=== PATIENT | female | born 2000 ===

== ENCOUNTER 2024-09-16 11:38 | Outpatient (AMB) | payer OTHER, SELFPAY ==
--- NOTE | 2024-09-16 11:40 | MHC.OFFWIV ---
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 - In April or May, she was evaluated and noted to have significant sinus obstruction, treated with antibiotics without success. - The patient is struggling with nasal congestion, sneezing with occasional epistaxis, and nasal irritation unrelieved by prior treatments. - She reports an adverse reaction to nasal sprays due to her GERD, requiring limited use to prevent exacerbating reflux symptoms. - Persistent sinus pressure and headaches have led to nausea, while saline sprays provide little relief. - June's treatment with a macrolide antibiotic was unsuccessful in providing resolution. Physical Exam General: Cooperative, healthy appearing, comfortable and no acute distress Orientation/consciousness: Patient oriented x3 Limitations: No limitations Head: Normal to inspection Ears: Hearing grossly normal bilaterally, external ears normal and TM's normal bilaterally Nose: Normal external nose present, Normal nares present and No nasal discharge present Face and sinus: Normal facial exam and yes, maxillary sinuses tender Mouth: Normal oral and palatal mucosa present and moist mucous membranes Throat: Yes tonsils normal, Yes uvula midline. Posterior oropharynx erythema with cobblestoning Eyes: Appearance normal, both eyes and all related structures Neck: Normal visual inspection Respiratory: Normal respiratory effort, able to speak in complete sentences, no respiratory distress, not tachypneic, no tripod positioning and no use of accessory muscles Skin: No rashes or lesions noted Neuro: Patient oriented x3 Extremities: Normal to inspection and Yes no clubbing, cyanosis or edema PFSH Social History Patient Tobacco Use Status: Never used Tobacco Review of Systems Const All systems reviewed & are unremarkable except as noted in HPI and below Physical Exam Vital Signs: Last Vital Signs Temp 98.6 F 09/16/24 11:47 Pulse 60 09/16/24 11:47 BP 102/60 09/16/24 11:47 Pulse Ox 99 09/16/24 11:47 BMI result Body Mass Index 21.9 Assessment & Plan Assessment & Plan (1) Acute bacterial sinusitis: Code(s): J01.90 - Acute sinusitis, unspecified; B96.89 - Other specified bacterial agents as the cause of diseases classified elsewhere Plan: VSS, pt well appearing and PE remarkable for sinus tenderness. The decision was made to initiate treatment with doxycycline to counter a suspected bacterial component of the chronic sinusitis, given the patient's history of recurrent infections, while considering her hypersensitivity to amoxicillin. Usage instructions include limiting direct sun exposure due to potential photosensitivity. Saline nasal sprays and Flonase will continue for symptom management despite previously observed limitations. Oral steroid therapy was considered but deferred due to interactions with existing immunotherapy. The therapeutic aim is to alleviate sinus obstruction and inflammation while monitoring patient response to the antibiotic regimen. Patient was informed and verbally consented to the use of an ambient scribe for clinic note documentation during this visit Medications: New doxycycline hyclate 100 mg PO BID 14 tabs 0RF Coding Level of Care Code New Pt Level 3 (37103) Diagnoses Acute bacterial sinusitis J01.90; B96.89
[2024-09-16 11:47] VITALS: BP 102/60; PULSE 60; TEMP 37; O2SAT 99; BMI 21.9
--- OUTSIDE RECORDS SUMMARY | 2024-09-16 14:25 | XMS_ITS | Clinical Summary ---
Author Organization [employer] Address [address] [place] [address] [address] [place] [address] Care Team Providers Care Sales & Service Associate Name Role Phone Unavailable Primary Care Provider Unavailabl e Social History Tobacco Use Types Packs/Day Years Used Date Smoking Tobacco: Never Assessed Comments Unknown Sex and Gender Information Value Date Recorded Sex Assigned at Female 03/06/2023 3:32 PM EDT Legal Sex Female 3:31 PM EDT Gender Identity Female 03/06/2023 3:32 PM EDT Sexual Orientation Straight 03/06/2023 3: 32 PM EDT Plan of Treatment Health Maintenance Due Date Last Done Comments Depression Screening 1999 HIV Screening 1999 SDOH Screening 1999 Alcohol/Substance Use Screening 2011 Tobacco Screening 2011 Family Planning (PISQ) 2014 HPV Vaccines (1 - 3-dose series) 2014 Hepatitis C Screening 2017 Hepatitis A Vaccines (2 of 2 - 2-dose series) 09/20/2017 03/23/2017 Pneumococcal Vaccine: Pediatrics (0 to 5 Years) and At-Risk Patients (6 to 49) Years) (1 of 2 - PCV) 2018 Pap Smear 2020 COVID-19 Vaccine (5 - 2023- season) 2024 08/05/2022, 06/14/2021, 12/07/2020, Additional history exists Influenza Vaccine (#1) 2024 , 05/06/2021, 05/06/2021, Additional history exists DTaP/Tdap/Td Vaccines (5 - Td or Tdap) 09/17/2031 09/16/2021, 09/16/2021, 08/11/2009, Additional history exists Zoster Vaccines (1 of 2) 2049 RSV Patients and Patients Aged 60 years or older (1 - 1-dose 75+ series) 2074 Hepatitis B Vaccines Completed 03/23/2017, 03/23/2017, 01/24/2017, Additional history exists Meningococcal Vaccine Completed 02/08/2018 , 02/08/2018, 08/16/2010, Additional history exists HIB Vaccines Aged Out No longer eligi ble based on patient's age to complete this topic IPV Vaccines Aged Out No longer eligi ble based on patient's age to complete this topic RSV under 20 months Aged Out No longe r eligible based on patient's age to complete this topic Rotavirus Vaccines Aged Out No longer eligible based on patient's age to complete this [place] [address] [place] [address]
== END 2024-09-16 12:42 | disposition home or self-care (01) ==
PROVIDERS: Visit Provider Physician Assistant
DX: J01.90 Acute sinusitis, unspecified (principal); B96.89 Other specified bacterial agents as the cause of diseases classified elsewhere

== ENCOUNTER → 2024-09-16 11:38 | Outpatient (BNVA) | payer OTHER, SELFPAY | PROVIDERS: Visit Provider Physician Assistant | DX: J01.90 Acute sinusitis, unspecified (principal); B96.89 Other specified bacterial agents as the cause of diseases classified elsewhere | CPT/HCPCS: 99202 ==

== ENCOUNTER 2024-09-23 11:14 | Outpatient (AMB) | payer OTHER, SELFPAY ==
--- NOTE | 2024-09-23 11:18 | MHC.OFFWIV ---
Intake Vital Signs 09/23/24 11:21 Weight 115 lb BP 108/70 Blood Pressure Location Lt brachial Position Sitting Pulse 102 H Pulse Source Pulse Oximeter Pulse Oximetry (%) 98 Oxygen Delivery Method Room Air Intake Visit Reasons: EP ABX not working? Sinus congestion Intake Note: Patient here for sinus infection and was put on antibiotics last week which did not help. Patient Tobacco Use Status: Never used Tobacco Allergies amoxicillin Allergy (Mild, Verified 09/16/24 11:47) Hives HPI HPI Comments History of Present Illness Details History The patient is a 24 year old female presenting with persistent nasal congestion and sinusitis symptoms. Sinusitis was diagnosed on September 16, and a 7-day doxycycline course was prescribed, which proved ineffective, suggesting a viral origin. The patient experiences persistent sneezing, blood-tinged nasal discharge, significant nasal congestion, and thick yellow mucus. She reports difficulty breathing and has tried saline sprays and Flonase without relief. The patient is also on desloratadine, with no use of Mucinex. Her current medications include Kesimpta for multiple sclerosis, with the last injection on August 29 and the next on September 29. Concerns were raised about the interaction with steroids due to ongoing immunotherapy. Physical Exam General: Cooperative, healthy appearing, comfortable and no acute distress Orientation/consciousness: Patient oriented x3 Limitations: No limitations Head: Normal to inspection Ears: Hearing grossly normal bilaterally Nose: Normal external nose present, Normal nares present Face and sinus: Normal facial exam Eyes: Appearance normal, both eyes and all related structures Neck: Normal visual inspection Respiratory: Normal respiratory effort, able to speak in complete sentences, no respiratory distress, not tachypneic, no tripod positioning and no use of accessory muscles Skin: No rashes or lesions noted Neuro: Patient oriented x3 Extremities: Normal to inspection and Yes no clubbing, cyanosis or edema PFSH Social History Patient Tobacco Use Status: Never used Tobacco Review of Systems Const All systems reviewed & are unremarkable except as noted in HPI and below Physical Exam Vital Signs: Last Vital Signs Pulse 102 H 09/23/24 11:21 BP 108/70 09/23/24 11:21 Pulse Ox 98 09/23/24 11:21 Oxygen Delivery Method Room Air 09/23/24 11:21 Assessment & Plan Assessment & Plan (1) Acute bacterial sinusitis: Code(s): J01.90 - Acute sinusitis, unspecified; B96.89 - Other specified bacterial agents as the cause of diseases classified elsewhere Plan: A short course of oral prednisone, 20 mg daily for five days, was initiated to manage nasal congestion and sinusitis symptoms, planning around the patient's Kesmipta schedule,next injection 09/29, to reduce interaction risks. Continuing saline nasal sprays was reinforced, suggesting a switch to hypertonic saline for increased efficacy. The use of Benadryl at night was recommended to help with symptom management, providing a multi-faceted approach to the patient's nasal issues alongside existing treatments. Continue Flonase and allergy pill daily. Patient was informed and verbally consented to the use of an ambient scribe for clinic note documentation during this visit Medications: New prednisone 20 mg PO QAM 5 tabs 0RF Coding Level of Care Code New Pt Level 3 (98614) Diagnoses Acute bacterial sinusitis J01.90; B96.89
[2024-09-23 11:21] VITALS: BP 108/70; PULSE 102; O2SAT 98
--- OUTSIDE RECORDS SUMMARY | 2024-09-23 13:33 | XMS_ITS | Clinical Summary ---
Author Organization [employer] Address [address] [place] [address] [address] [place] [address] Care Team Providers Care Personal Lines Account Executive Name Role Phone Unavailable Primary Care Provider [...] patient's age to complete this topic [place] [address] [address] [place] [address]
== END 2024-09-23 12:16 | disposition home or self-care (01) ==
PROVIDERS: Visit Provider Physician Assistant
DX: J01.90 Acute sinusitis, unspecified (principal); B96.89 Other specified bacterial agents as the cause of diseases classified elsewhere

== ENCOUNTER → 2024-09-23 11:14 | Outpatient (BNVA) | payer OTHER, SELFPAY | PROVIDERS: Visit Provider Physician Assistant | DX: J01.90 Acute sinusitis, unspecified (principal); B96.89 Other specified bacterial agents as the cause of diseases classified elsewhere | CPT/HCPCS: 99212 ==

== ENCOUNTER 2024-11-18 08:38 | Outpatient (AMB) | payer OTHER, SELFPAY ==
--- NOTE | 2024-11-18 08:45 | AM.OFFWIN_ITS ---
Intake Vital Signs 11/18/24 08:46 Height 5 ft 1 in Weight 115 lb BMI 21.7 BP 102/66 Blood Pressure Location Lt brachial Position Sitting Pulse 87 Pulse Source Pulse Oximeter Temp 98.4 F Temp Source Oral Pulse Oximetry (%) 98 Intake Visit Reasons: EP upper respiratory ? sinus infection Patient Tobacco Use Status: Never used Tobacco Allergies amoxicillin Allergy (Mild, Verified 11/18/24 08:46) Hives Do you need a note to return to daycare/school/sports/work: No HPI HPI Comments History of Present Illness Details History - The patient is a 24 year old female pr esenting with prolonged sinus issues. - She experienced sinus problems, likely due to inhaling sawdust at her workplace, which led to acute sinusitis. - Initial treatments with prednisone, ad ditional steroids, and Saida were ineffective, nor was desloratadine. - She experienced nasal breathing diffic ulties over the preceding three weeks, alongside headaches and fatigue. - Notably, she developed hematuria manif esting as blood clots following a sneeze and reported sharp urination pain, though hematuria has since resolved. - While fever was absent, she did report unexplained back pain. - Currently, she is treated with pantopr azole for GERD and has an amoxicillin allergy. - No recent auditory symptoms were signi ficant. Physical Exam General: Cooperative, healthy appearing, comfortable and no acute distress Orientation/consciousness: Patient oriented x3 Limitations: No limitations Head: Normal to inspection Ears: Hearing grossly normal bilaterally, external ears normal and TM's normal bilaterally Nose: Normal external nose present, Normal nares present and No nasal discharge present Face and sinus: Normal facial exam and Yes sinuses nontender Mouth: Normal oral and palatal mucosa present and moist mucous membranes Throat: Yes tonsils normal, Yes uvula midline. Posterior oropharynx with erythema and cobblestoning Eyes: Appearance normal, both eyes and all related structures Neck: Normal visual inspection Respiratory: Clear to auscultation bilaterally. Normal respiratory effort, able to speak in complete sentences, no respiratory distress, not tachypneic, no tripod positioning and no use of accessory muscles Cardiovascular: Regular rate and rhythm. Normal S1 and S2 Skin: No rashes or lesions noted Neuro: Patient oriented x3 Extremities: Normal to inspection and Yes no clubbing, cyanosis or edema PFSH Social History Patient Tobacco Use Status: Never used Tobacco Review of Systems Const All systems reviewed & are unremarkable except as noted in HPI and below Physical Exam Vital Signs: Last Vital Signs Temp 98.4 F 11/18/24 08:46 Pulse 87 11/18/24 08:46 BP 102/66 11/18/24 08:46 Pulse Ox 98 11/18/24 08:46 BMI result Body Mass Index 21.7 Assessment & Plan Assessment & Plan (1) Acute bacterial sinusitis: Code(s): J01.90 - Acute sinusitis, unspecified; B96.89 - Other specified bacterial agents as the cause of diseases classified elsewhere Plan: VSS, pt well appearing and PE unremarkable. To treat the patient's acute sinusitis and urinary tract infection, I have prescribed cefuroxime, which covers both conditions effectively, given her allergy to amoxicillin. Despite the rare chance of a reaction due to penicillin cross-reactivity, I recommended vigilance for any allergic symptoms. Concurrently, I advised against taking pantoprazole during antibiotic therapy to avoid reduced drug efficacy, suggesting TUMS as an interim GERD remedy. A seven- day schedule for cefuroxime was selected for comprehensive coverage, providing flexibility should symptoms persist beyond the initial five days. A negative test was confirmed, influencing treatment direction. Further GERD management will be reconsidered post-antibiotic course completion. Patient was informed and verbally consented to the use of an ambient scribe for clinic note documentation during this visit (2) UTI (urinary tract infection): Code(s): N39.0 - Urinary tract infection, site not specified Qualifiers: Urinary tract infection type: acute cystitis Hematuria presence: with hematuria Qualified Code(s): N30.01 - Acute cystitis with hematuria Plan: as above Medications: New cefuroxime axetil 500 mg PO Q12H 14 tabs 0RF Coding Level of Care Code Est Pt Level 4 (38847) Diagnoses Acute bacterial sinusitis J01.90; B96.89 Acute cystitis with hematuria N30.01 Urinary tract infection type: acute cystitis Hematuria presence: with hematuria
[2024-11-18 08:46] VITALS: BP 102/66; PULSE 87; TEMP 36.9; O2SAT 98; BMI 21.7
--- OUTSIDE RECORDS SUMMARY | 2024-11-18 08:56 | XMS_ITS | Clinical Summary ---
Author Organization [employer] Address [address] [place] [address] [address] [place] [address] Care Team Providers Care Assistant Golf Course Superintendent Name Role Phone Unavailable Primary Care Provider [...] 1999 HIV Screening 1999 SDOH Screening 1999 Disability Screening 1999 Alcohol/Substance Use Screening 2011 Tobacco [...] 02/08/2018 , 02/08/2018, 08/16/2010, Additional history exists Meningococcal B Vaccine Completed 12/24/2018, 02/08 HIB Vaccines Aged Out No longer eligi [...] patient's age to complete this topic [place] [address] [place] [address]
== END 2024-11-18 09:21 | disposition home or self-care (01) ==
PROVIDERS: Visit Provider Physician Assistant
DX: J01.90 Acute sinusitis, unspecified (principal); B96.89 Other specified bacterial agents as the cause of diseases classified elsewhere; N30.01 Acute cystitis with hematuria; Z13.9 Encounter for screening, unspecified

== ENCOUNTER → 2024-11-18 08:38 | Outpatient (BNVA) | payer OTHER, SELFPAY | PROVIDERS: Visit Provider Physician Assistant | DX: J01.90 Acute sinusitis, unspecified (principal); B96.89 Other specified bacterial agents as the cause of diseases classified elsewhere; N30.01 Acute cystitis with hematuria | CPT/HCPCS: 81003; 81025; 99212 ==